=== PATIENT | female | born 1940 | race Caucasian/White ===

== ENCOUNTER → 2024-03-05 10:05 | Outpatient (REF) | payer MEDICARE, BC, SELFPAY | LOC: RAD 10:05 | PROVIDERS: ATTENDING PHYSICIAN Otolaryngology; FAMILY PHYSICIAN Internal Medicine Geriatric Medicine | DX: R13.14 Dysphagia, pharyngoesophageal phase (principal) | CPT/HCPCS: 74230; 92611 ==

== ENCOUNTER 2024-08-31 00:29 | Observation (INO) | payer MEDICARE, BC, SELFPAY ==
[2024-08-30] VITALS (7 sets, daily range): BP systolic 95–132; BP diastolic 66–88; PULSE 64–71
[2024-08-30 21:13] LABS: % Basophils 0.3 % (0-2); % Eosinophils 2.8 % (0-6); % Immature Granulocytes 0.4 % (0-0.5); % Lymphocytes 23.3 % (20.5-51.1); % Monocytes 6.8 % (1.7-9.3); % Neutrophils 66.4 % (42.2-75.2); Absolute Eosinophils 0.2 10^3/uL (0-0.7); Absolute Lymphocytes 1.6 10^3/uL (1.2-3.4); Absolute Monocytes 0.5 10^3/uL (0.1-0.6); Absolute Neutrophils 4.6 10^3/uL (1.4-6.5); Hematocrit 43.9 % (37.0-47.0); Hemoglobin 14.9 g/dL (12.0-16.0); Mean Corp Hgb Conc. 33.9 g/dL (33.0-37.0); Mean Corpuscular Hgb 33.4 pg (27.0-31.0); Mean Corpuscular Volume 98.4 fL (81.0-99.0); Mean Platelet Volume 9.8 fL (7.4-10.4); Nucleated Red Blood Cells % 0 %; Platelet Count 229 10^3/uL (130-400); Red Blood Cell Count 4.46 10^6/uL (4.20-5.40); Red Cell Dist. Width 12.3 % (11.5-14.5); White Blood Cell Count 6.9 10^3/uL (4.8-10.8)
[2024-08-30 21:27] LABS: ALT (SGPT) 26 U/L (0-35); AST (SGOT) 29 U/L (14-36); Albumin 4.2 g/dl (3.5-5.0); Alkaline Phosphatase 89 U/L (38-126); Blood Urea Nitrogen 24 mg/dl (7-17); Calcium 9.9 mg/dl (8.4-10.2); Carbon Dioxide 24 mmol/L (22-30); Chloride 104 mmol/L (98-107); Glucose 110 mg/dl (70-99); Sodium 141 mmol/L (135-145); Total Protein 7.1 g/dl (6.3-8.2); eGFR > 60.00
[2024-08-30 21:39] LABS: Troponin I < 0.012 ng/ml
[2024-08-30] MEDS: NSS 1000 IV (22:56)
--- NOTE | 2024-08-30 23:14 | ED.GENMED ---
History of Present Illness
General
Chief Complaint: Fatigue
Source: patient and family (Son at bedside)
Exam Limitations: none
Time Seen by Provider: 08/30/24 22:16
Nursing documentation reviewed up to this point in time: agreed with
History of Present Illness
History of Present Illness:
This is an 84-year-old woman who resides in independent living apartment at [facility]. She has history of permanent A-fib, chronically maintained on Xarelto, Toprol XL 50 mg, diltiazem ER 120 mg. She also has history of obstructive sleep
apnea, restless leg syndrome, hyperlipidemia, GERD, fibromyalgia, depression, glaucoma.
She complains of 3-day history of intermittent episodes of lightheadedness accompanied with some abdominal cramping nausea and near syncope. She does report history of irritable bowel syndrome and states these episodes seem to come on 1 to 2 hours
after she eats and she initially thought that these episodes were related to exacerbation of irritable bowel however admits that she has never experienced similar symptoms in the past. She denies fever, no diarrhea but perhaps mild constipation.
Last bowel movement was 2 to 3 days ago, soft but somewhat painful to pass.
Tonight while lying in bed she developed nausea, mild abdominal cramping and thought that she was going to vomit thus she sat up in an attempt to get up out of bed but then immediately passed out and fell back onto her pillow. This episode was
witnessed by her son who states his mom's eyes rolled back and she fell back unconscious. She was quite pale/douglas in color. No seizure activity. Upon EMS arrival patient did vomit once. She denies a sense of dizziness nor sense of spinning. No
palpitations, no chest pain.
Currently feeling well, currently asymptomatic.
Her daily medications include: Xarelto 20 mg daily, Toprol XL 50 mg once at bedtime, diltiazem ER 120 mg once daily, Lexapro 5 mg 2 tablets daily, Protonix 40 mg once daily, 2 eyedrops for glaucoma, multivitamin.
She has not taken her evening medications as yet which include Xarelto, Toprol, diltiazem.
Past History
Past History
ED Past Medical History: Arrthythmia (Permanent atrial fibrillation), HTN, Hypercholesterolemia and Other (Obstructive sleep apnea, restless leg syndrome, fibromyalgia, depression, glaucoma, irritable bowel syndrome)
Social History
Tobacco: Non-smoker
Alcohol: None
Personal:
Living: assisted living (Independent living apartment at [facility])
Employment: Retired
Family History
Family History: Other (Noncontributory)
Phy Exam
Physical Exam
Physical Exam:
GENERAL: 84-year-old woman appears her stated age, awake and alert, pleasant, appears in no acute distress.
EYE: pupils equal and reactive. Extraocular muscles intact, anicteric
NECK: Supple, nontender, no meningismus, no significant adenopathy.
ENT: posterior pharynx is clear, oral mucosa is minimally dry. No rhinorrhea.
CARDIAC: Irregularly irregular at a rate of 70, no murmur.
LUNGS: Clear breath sounds bilaterally, no acute respiratory distress, no wheezes/rales/rhonchi
ABDOMEN: Soft, nondistended, without focal tenderness, no r/g, no cvat. normoactive BS.
NEUROLOGICAL: Alert and oriented x3, no focal neuro deficits.
SKIN: Warm and dry, normal color, skin intact. No rash.
MUSCULOSKELETAL: No C/C/E. peripheral pulses are full and equal b/l. No palpable tenderness.
PSYCH: Normal and appropriate interaction.
Course
Orders/Labs/Results
Orders:
Orders
08/30/24 20:58
Electrocardiogram (*1) Urgent
Reason for Study: Chest Pain
EKG- Treatment ONCE
08/30/24 21:06
Complete Blood Count/With Diff Urgent
Comprehensive Metabolic Panel Urgent
Troponin I Urgent
08/30/24 22:44
Orthostatic VS- Treatment ONCE
0.9% Sodium Chloride 1000 ml [Nss] 1,000 ml IV BOLUS
Abnormal Lab Results
08/30/24
21:06
MCH 33.4 H pg
(27.0-31.0)
BUN 24 H mg/dl
(7-17)
Glucose 110 H mg/dl
(70-99)
08/30/24 21:06
08/30/24 21:06
Vital Signs
Initial and Last Documented VS:
Initial Vital Signs
Temp Pulse Resp BP Pulse Ox
97.8 F 74 16 132/88 97
08/30/24 20:55 08/30/24 20:55 08/30/24 20:55 08/30/24 20:55 08/30/24 20:55
Last Documented Vital Signs
Temp Pulse Resp BP Pulse Ox
97.8 F 65 11 95/72 100
08/30/24 20:55 08/30/24 22:45 08/30/24 22:45 08/30/24 22:25 08/30/24 22:45
MDM/Problems Addressed
Differential Diagnosis Includes:
Patient noted to be mildly hypotensive with systolic blood pressure 90-95 systolic. Concern for episodes of orthostasis, symptomatic hypotension, other consideration is intermittent bradycardia arrhythmia.
EKG shows atrial fibrillation with controlled ventricular response to slow ventricular response 58-60.
Labs are unremarkable save for very mild prerenal azotemia with BUN of 24/creatinine 0.9. Troponin is negative. CBC is unremarkable.
Will check orthostatic vital signs and initiate IV fluid hydration.
Will continue satellite project site monitor.
Abdomen is soft without appreciable tenderness, no palpable masses and with reassuring labs, no indication for imaging.
Syncopal episode tonight while in bed, no head injury and witnessed by son. No focal neurodeficits this at this point no indication for CT of the head.
Patient is however at significant risk for recurrent near syncopal/syncopal events and thus at risk for head injury, due to Xarelto she is at significant risk for intracranial injury/bleeding if syncopal event recurs.
As such requires acute hospitalization for continued close observation and continued satellite project site monitor.
Chronic conditions affecting care: Arrhythmia
*Pulse Oximetry
Patient hypoxic: no
*Wireless Development Manager Interpretation
Rate: bradycardiac
Interpretation: abnormal
Rhythm: a-fib
*Critical Care Note
Total Time (30-74mins, 75-104mins- exclusive of procedures): Not Applicable
ED Attending Note
-
Portions of this chart may have been created with voice recognition software.� Occasional wrong word or��sound alike� substitutions may have occurred due to the inherent limitations of voice recognition software.
Discharge Plan
Departure
Patient Disposition: Admit
Date of Disposition: 08/30/24
Time of Disposition: 23:32
Admit to doctor: Matt
Presentation/result/management discussed w/ accepting MD/DO: Hospitalist
Condition: Fair
Discharge Problem:
recurrent near syncope/syncope
Referrals:
Shaista Willis MD [Family Provider] -
Interventions
Interventions:
*Risk Screen - Suicide Last Done: 08/30/24 20:55
*Neglect/Abuse Screening Last Done: 08/30/24 20:55
Discharge Date and Time
Print Language: DANISH
[2024-08-31] VITALS (11 sets, daily range): BP systolic 110–143; BP diastolic 57–114; PULSE 67–92; O2SAT 96; BMI 23.5; BMI 21.9
--- NOTE | 2024-08-31 00:14 | HPS.HSE ---
Family Physician
-
Family Physician: Shaista Willis
Chief Complaint
-
Syncope, N/V
History of Present Illness
Patient is an 84y F with PMH significant for permanent atrial fibrillation and IBS who presents to ED complaining of N/V and syncopal episodes for the past 3-4 days. Patient reports long-standing IBS with alternating periods of constipation and
diarrhea. She had recent constipation with 'painful' BM several days ago. evening, she felt nauseated after dinner and felt that she had to have an episode of emesis. Patient states that she 'always passes out when I throw up'. Patient
states that she went into the bathroom and lie down on the floor where she had an episode of emesis and briefly lost consciousness. She reports several similar episodes over the past 3 days - typically occurring after eating. This evening her son
came by to check on her and witnessed a similar episode after she ate a piece of bread. He noted that her eyes rolled back and she was staring / unresponsive for several moments.
At present, she is resting comfortably. She complains of feeling tired but has no other complaints.
She denies any chest pain, palpitations, dyspnea, etc. No fevers / chills. No bloody stools. No urinary complaints.
Patient denies any recent medication changes.
Medical History
Past Medical History
Past Medical History: Reports Other
Additional Past Medical History:
Permanent Atrial Fibrillation
JADEN
Restless Leg Syndrome
Fibromyalgia
IBS
Psoriasis
Glaucoma
Past Surgical History: Reports Other
Additional Past Surgical History:
DCCV
Cardiac Cath (normal / no stent per patient)
Social History
Tobacco: Non-smoker
Alcohol: Daily (Patient drinks 3-4 glasses of alcohol daily (wine / [place]).)
Drug: None
Personal:
Family History
Family History: Not pertinent
Allergies / Home Medications
Allergies reflects when Allergies were last updated in [employer] [facility] [employer].
Home Medications with original date entered in [employer] [facility] [employer]
Allergy/Medication List:
Allergies
Allergy/AdvReac Type Severity Reaction Status Date / Time
amoxicillin Allergy Nausea / Verified 08/30/24 20:58
Vomiting
[id number] Reductase Allergy Nausea Verified 08/30/24 20:58
Inhibitor
Home Medications
diltiazem HCl 120 mg tablet,extended release 24 hr 120 mg PO DAILY 08/31/24
escitalopram oxalate 10 mg tablet 10 mg PO DAILY 08/31/24
metoprolol succinate 50 mg tablet,extended release 24 hr 50 mg PO HS 08/31/24
rivaroxaban 20 mg tablet (Xarelto) 20 mg PO DAILY 08/31/24
Review of Systems
-
History Source: Patient
A 12 point ROS was completed and negative except as noted: Yes
Constitutional: Reports Fatigue; Denies Fever or Chills
EENT: Denies Sore Throat
Respiratory: Denies Cough or Trouble Breathing
Cardiac: Reports Syncope; Denies Chest Pain or Palpitations
Abdomen/GI: Reports Nausea, Vomiting, Diarrhea and Constipated; Denies Abdominal Pain, Bloody Stools or Black Stools
: Denies Dysuria, Frequency or Flank Pain
Musculoskeletal: Denies Joint Pain or Edema
Neurological: Denies Dizzy or Headache
Psych: Denies Depression or Anxiety
Physical Exam
Vital Signs
Vital Signs
Temp Pulse Resp BP Pulse Ox
97.8 F 62 21 126/63 99
08/30/24 20:55 08/31/24 00:00 08/31/24 00:00 08/31/24 00:00 08/31/24 00:00
Physical Exam
General: Other (84y F in no acute distress.)
HEENT: Moist mucous membranes and PERRLA
Respiratory: Clear; No Wheezes, Rales or Rhonchi
Cardiac: S1/S2 and Irregular Rhythm; No Murmur
GI: Soft, Non Distended, Normal Bowel Sounds and Other (Mild tenderness in the LLQ area. No rebound / guarding.)
Musculoskeletal: No Clubbing, No Cyanosis and No Edema
Neuro: AO x 3
Laboratory Results
-
08/30/24 21:06
08/30/24 21:06
Laboratory Results
Total Bilirubin 1.0 mg/dl (0.2-1.3) 08/30/24 21:06
AST 29 U/L (14-36) 08/30/24 21:06
ALT 26 U/L (0-35) 08/30/24 21:06
Alkaline Phosphatase 89 U/L (38-126) 08/30/24 21:06
Troponin I < 0.012 ng/ml 08/30/24 21:06
Impression/Plan
-
A/P: Patient is an 84y F with PMH significant for A-Fib and IBS who presents to ED complaining of N/V x several days with recurrent syncopal episodes.
Vasovagal Syncope
- Observe overnight for further evaluation and treatment.
- Patient implies that this is a chronic / recurrent issue for her - associated with GI distress.
- Monitor on tele (currently A-Fib with relative bradycardia).
- Hold CCB for now. Continue metoprolol with split dose and holding parameters for now.
- Cardiology evaluation for additional recommendations.
- Monitor for any new / recurrent symptoms.
N/V
- Unclear etiology. Differential includes pancreatitis, alcoholic gastropathy, enteritis, etc.
- Afebrile and non-toxic. Exam relatively benign with only mild LLQ tenderness.
- Consider imaging study if symptoms worsen / persist.
- Lipase is pending.
- IVF support, antiemetics, etc.
- Follow for any new / recurrent symptoms.
Permanent Atrial Fibrillation
- Stable. Rate controlled at present / borderline bradycardic.
- Continue Xarelto for stroke risk reduction.
- Adjust chronotropic meds as noted above given syncope.
IBS
- Alternating constipation and diarrhea.
- No new / worsened symptoms per patient.
Alcohol Use Disorder
- Patient admits to 3-4 alcoholic drinks per day.
- Likely contributing to GI issues.
- Lipase pending as noted above.
- MSAS protocol / monitor for any symptoms of withdrawal.
- B12, folate, MVI replacement, etc.
DVT Prophylaxis: On Xarelto
Code Status: DNR
[2024-08-31 00:45] LABS: Lipase 165 U/L (23-300)
[2024-08-31] MEDS: LR 1000 IV ×2 (02:08→17:19)
--- NOTE | 2024-08-31 04:32 | PTCARENOTE ---
Patient arrived to floor from ED via stretcher. Patient able to safely ambulate x1 assist into room 338-1 on . Patient AAOx3 and able to make needs known. Tele placed on patient per orders. Oriented to unit. Call barry within reach. Plan of
care ongoing.
[2024-08-31 04:51] LABS: Hematocrit 40.4 % (37.0-47.0); Mean Corp Hgb Conc. 34.7 g/dL (33.0-37.0); Mean Corpuscular Hgb 35.4 pg (27.0-31.0); Mean Corpuscular Volume 102.3 fL (81.0-99.0); Mean Platelet Volume 10.3 fL (7.4-10.4); Platelet Count 184 10^3/uL (130-400); Red Blood Cell Count 3.95 10^6/uL (4.20-5.40); Red Cell Dist. Width 12.1 % (11.5-14.5); White Blood Cell Count 6.6 10^3/uL (4.8-10.8)
[2024-08-31 05:12] LABS: Blood Urea Nitrogen 22 mg/dl (7-17); Calcium 9.1 mg/dl (8.4-10.2); Carbon Dioxide 23 mmol/L (22-30); Chloride 108 mmol/L (98-107); Estimated Creatinine Clearance 58 ml/min; Glucose 101 mg/dl (70-99); Potassium 4.4 mmol/L (3.5-5.1); Sodium 139 mmol/L (135-145); eGFR > 60.00
[2024-08-31 05:40] LABS: TSH Reflex To Free T4 0.38 uIU/ml (0.47-4.68)
[2024-08-31 06:10] LABS: Free T4 0.82 ng/dl (0.78-2.19)
[2024-08-31] MEDS: PROTONIX IV 40 MG IV (08:34)
[2024-08-31] MEDS: THIAMINE INJECTION 200 MG IV ×2 (08:34→21:15)
[2024-08-31] MEDS: NSS (PRESERVATIVE FREE) 10 ML IV (08:34)
[2024-08-31] MEDS: LEXAPRO 10 MG PO (08:35)
[2024-08-31] MEDS: TOPROL XL 25 MG PO ×2 (08:35→21:14)
[2024-08-31] MEDS: FOLVITE 1 MG PO (08:36)
--- NOTE | 2024-08-31 08:42 | CON.CAR ---
Addendum entered and electronically signed by Josesito Funez MD (Ellie) 08/31/24 12:43:
I saw and examined the patient.
Dr. Hatch's note was reviewed and I agree with the note.
Comment: 84-year-old female with past medical history of permanent atrial fibrillation on Xarelto, IBS, who presents with syncope. Patient reports that for the last week she has been feeling nauseous and vomiting. 3 times when she is vomited, she
has subsequently fainted. This has never happened to her in the past. Prior to coming to the ED, she reports that she woke up in the middle of the night and felt nauseous. She got up from her bed to vomit and the next thing she knew her son had
come into the room because she had collapsed on the bed. Her son is not here to corroborate the story, so I do not know how long she was down for. She then was taken to the ED by EMS. Labs were unremarkable. Troponin negative. ECG revealed slow
atrial fibrillation with septal Q waves (unchanged from prior). She had some low blood pressures overnight (90s/70s). This morning she feels at her baseline.
I believe that her syncope is vasovagal in nature. We will have the nurse check orthostatic vitals. She will get an updated echocardiogram today. We will decrease her metoprolol to 25 mg daily given her lower blood pressures and recent fatigue.
If her echocardiogram is unchanged, she is stable for discharge. She has clinic follow-up scheduled for November.
Original Note:
Consultation
Consultation Request
Date/Time Consultation Requested: 08/31/24
Date/Time Consultation Performed: 08/31/24
Requesting Provider: Dr Sherly Funez
Performing Provider: Dr Juancarlos Hatch
Reason for Consultation: vasovagal syncope and bradycardia
Medical History
-
Chief Complaint: syncope
History of Present Illness:
84 year old female with history of permanent atria fibrillation on Xarelto presented with vasovagal syncope. Patient has been having nausea after meals for the past 3-4 days. She had an episode on of nusea and emesis after dinner. Patient
states that she always 'faints/passes out' after emesis however these symptoms are new. She has had similar recurring episodes in the past 3 days. On Saturday she could not get from the bed to use the restroom and passed out in bed when her son found
her unresponsive for a few minutes. She has long standing IBS. She was seen in [facility] clinic for low BP readings. She denies CP, SOB. She sees Dr Hopkins, outpatient.
Past Medical History
Past Medical History: Arrhythmias and Other (IBS, psoriasis, RLS, JADEN)
Past Surgical History: Cardiac (direct cardioversion)
Social History
Tobacco: Non-Smoker
Alcohol: Daily (3- 4 glasses of alcohol (wine))
Drug: None
Personal:
Employment: Retired
Family History
Family History: Reviewed & Not Pertinent
Allergies / Home Medications
Allergy/AdvReac Type Severity Reaction Status Date / Time
amoxicillin Allergy Nausea / Verified 08/30/24 20:58
Vomiting
Xoufypw-[id number] Reductase Allergy Nausea Verified 08/30/24 20:58
Inhibitor
�Medication �Instructions �Recorded �Confirmed �Type
diltiazem HCl 120 mg 120 mg PO DAILY 08/31/24 08/31/24 History
tablet,extended release 24 hr
escitalopram oxalate 10 mg tablet 10 mg PO DAILY 08/31/24 08/31/24 History
metoprolol succinate 50 mg 50 mg PO HS 08/31/24 08/31/24 History
tablet,extended release 24 hr
rivaroxaban 20 mg tablet (Xarelto) 20 mg PO DAILY 08/31/24 08/31/24 History
Review of Systems
-
All other systems: Negative unless noted
Physical Exam
Vital Signs
Temp Pulse Resp BP Pulse Ox
97.8 F 60 17 119/60 97
08/31/24 07:27 08/31/24 07:27 08/31/24 07:27 08/31/24 07:27 08/31/24 07:27
Lab Results
08/31/24 04:05
08/31/24 04:05
Troponin I < 0.012 ng/ml 08/30/24 21:06
Physical Exam
General: Comfortable
HEENT: Normocephalic and Anicteric
Respiratory: Clear
Cardiac: S1/S2 (HR 60) and Irregular Rhythm; Negative Murmur
GI: Soft, Non Tender, Non Distended and Normal Bowel Sounds
Musculoskeletal: No Edema
Neuro: AO x 3
Psych: Calm
Impression / Plan
-
Impression
Syncope
Bradycardia
Permanent Atrial fibrillation
Assessment and Plan
Syncope
D/D for syncope - cardiac vs non cardiac syncope
Cardiac - bradyarrhythmia , SVT, afib.
Non cardiac- situational/vasovagal/ orthostatic hypotension
Patient had a prodrome (nausea , vomiting ) prior to syncope which is less concerning
She is on Metoprolol succinate ER 50 mg QD for 5 years with no adjustment of doses recently. Will continue with the same dose.
check orthostatic vitals.
Normal Troponin level 0.012.
Echo in 2020 with LVEF 60- 65%, normal systolic function and size of LV
Repeat echo
Bradycardia
D/D heart block, arrhythmia, sick sinus syndrome (less likely)
HR between 58- 68 which is within normal limits
continue to monitor on telemetry
Permanent afib
Stable on Xeralto for more than 10 years with no recent dose adjustment
No h/o stroke , DVT, PE, CAD.
H/o DCCV.
[2024-08-31] MEDS: COSOPT EYE DROPS 1 DROP RIGHT EYE ×2 (10:29→21:15)
--- NOTE | 2024-08-31 15:18 | CM ---
Alert awake oriented patient who lives at [facility] . She is independent in driving and all activates of daily living.She uses no adaptive devices.Offered substance abuse counseling.She declined.Son Maya will drive her home at
dc.
No VN in past . No SNF hx
Pharmacy [facility]
PCP Dr Willis
PLAN Home no needs
[2024-08-31] MEDS: COMPAZINE 5 MG IV (15:38)
--- NOTE | 2024-08-31 15:51 | W.PN.UPDATE ---
Update Note
Progress Note Update
Reducing beta-robert.
Await echocardiogram
Suspect vasovagal etiology of syncope
Orthostatic vitals
[2024-08-31] MEDS: XARELTO 20 MG PO (17:39)
[2024-08-31] MEDS: TYLENOL 650 MG PO (17:42)
[2024-08-31] MEDS: XALATAN OPHTHALMIC SOLUTION 1 DROP RIGHT EYE (21:15)
[2024-09-01 03:27] VITALS: BP 120/71
[2024-09-01] MEDS: LR 1000 IV (03:42)
[2024-09-01 06:00] VITALS: BMI 22.4
[2024-09-01 07:20] VITALS: BP 139/83
--- NOTE | 2024-09-01 08:01 | W.PN.CD ---
Addendum entered and electronically signed by Josesito Funez MD (Ellie) 09/01/24 10:01:
I saw and examined the patient.
The resident's note was reviewed and I agree with the note.
Comment: 84-year-old female with past medical history of permanent atrial fibrillation on Xarelto, IBS, who presents with syncope. Orthostatic vital signs were negative. Blood pressure is stable this morning on half home dose metoprolol.
Echocardiogram yesterday was overall stable from prior (mild increase in the degree of TR). Her syncope is consistent with vasovagal syncope. She should continue metoprolol 25 mg daily on discharge in addition to her home diltiazem and
rivaroxaban. Cardiology will sign off. Please call with additional questions. She has follow-up scheduled for November.
Original Note:
Today's Communication / Plan
-
Patient can be discharged on 25 mg metoprolol succinate
Cardiology outpatient f/u scheduled in Nov with Dr Funez
Ok from cardiology standpoint
cardiology will sign off
Impression / Plan
-
Impression
Syncope
Bradycardia
Permanent Atrial fibrillation
Assessment and Plan
Syncope
Likely vasovagal etiology
Orthostatic hypotension unlikely due to no change in vitals with position change
Metoprolol succinate 25 mg QD .
Normal Troponin level 0.012.
Echo reveals severe RA dilation, dilated RV with reduced systolic function. LVEF 55-60%
Follow up cardiology outpatient.
cardiology to sign off
Bradycardia
D/D heart block, arrhythmia, sick sinus syndrome (less likely)
HR between 58- 68 which is within normal limits
continue to monitor on telemetry
Permanent afib
Stable on Xeralto for more than 10 years with no recent dose adjustment
No h/o stroke , DVT, PE, CAD.
H/o DCCV.
Physical Exam
Vital Signs/Labs
Vital Signs
Temp Pulse Resp BP Pulse Ox
97.5 F 74 17 139/83 97
09/01/24 07:20 09/01/24 07:20 09/01/24 07:20 09/01/24 07:20 09/01/24 07:20
08/31/24 09/01/24 09/02/24
06:59 06:59 06:59
Actual Weight 63.503 kg 64.682 kg
08/31/24 04:05
08/31/24 04:05
Free T4 0.82 ng/dl (0.78-2.19) 08/31/24 04:05
LAB Results
08/30/24
21:06
Troponin I < 0.012
Physical Exam
Constitutional: No acute distress and Comfortable
Cardiovascular: Rhythm & rate is regular
Respiratory: Lungs clear to auscul.
GI: Soft
Neuro/Psych: AO x 3
Data Reviewed
-
Date of Service: September 01, 2024
Echo: Report Reviewed by me
Labs: Labs Reviewed by me
[2024-09-01] MEDS: LEXAPRO 5 MG PO (08:31)
[2024-09-01] MEDS: THIAMINE INJECTION 200 MG IV (08:31)
[2024-09-01] MEDS: FOLVITE 1 MG PO (08:31)
[2024-09-01] MEDS: PROTONIX 40 MG PO (08:31)
[2024-09-01] MEDS: COSOPT EYE DROPS 1 DROP RIGHT EYE (08:31)
[2024-09-01 09:04] VITALS: BP 141/79; BP 143/83; BP 144/83; PULSE 66; PULSE 71; PULSE 79
[2024-09-01 09:55] LABS: Hemoglobin 13.6 g/dL (12.0-16.0); Mean Corp Hgb Conc. 34.9 g/dL (33.0-37.0); Mean Corpuscular Hgb 35.4 pg (27.0-31.0); Mean Corpuscular Volume 101.6 fL (81.0-99.0); Mean Platelet Volume 10.2 fL (7.4-10.4); Platelet Count 185 10^3/uL (130-400); Red Blood Cell Count 3.84 10^6/uL (4.20-5.40); Red Cell Dist. Width 12.2 % (11.5-14.5); White Blood Cell Count 4.5 10^3/uL (4.8-10.8)
[2024-09-01] MEDS: OMNIPAQUE 50 ML PO (10:01)
[2024-09-01 10:03] LABS: ALT (SGPT) 19 U/L (0-35); AST (SGOT) 26 U/L (14-36); Albumin 3.4 g/dl (3.5-5.0); Alkaline Phosphatase 62 U/L (38-126); Blood Urea Nitrogen 13 mg/dl (7-17); Carbon Dioxide 27 mmol/L (22-30); Chloride 106 mmol/L (98-107); Estimated Creatinine Clearance 51 ml/min; Glucose 82 mg/dl (70-99); Potassium 4.1 mmol/L (3.5-5.1); Sodium 142 mmol/L (135-145); Total Bilirubin 1.1 mg/dl (0.2-1.3); Total Protein 5.9 g/dl (6.3-8.2); eGFR > 60.00
[2024-09-01 10:11] LABS: Lipase 135 U/L (23-300)
[2024-09-01 11:13] VITALS: BP 118/68
--- NOTE | 2024-09-01 12:32 | W.PN.HOSP.TC ---
Addendum entered and electronically signed by Magdi Eaton MD 09/02/24 17:57:
[id number]
Original Note:
Today's Communication/Plan
-
Reduce Toprol
CT abdomen pelvis
Follow-up PCP, GI, cardiology outpatient
Follow lipid panel, can consider aspirin, statin outpatient
Assessment / Plan
Assessment / Plan
Physical Exam
Constitutional: No acute distress and Comfortable
Cardiovascular: Rhythm & rate is regular
Respiratory: Lungs clear to auscul.
GI: Soft
Neuro/Psych: AO x 3
#Syncope
# Nephrolithiasis echo etiology in setting of vomiting
� Reduced Toprol to 20 mg daily
� No chest pain
� Echo revealing severe RA dilation, dilated RV with EF of 55 to 60%
� Continue back on diltiazem and Xarelto
� Follow cardiology outpatient
� Orthostatics negative
#Permanent atrial fibrillation
� On Xarelto
� AV marika blockade as discussed, reduce Toprol, continue diltiazem
� Has history of DCCV
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
� Already on Eliquis
-Lipid panel outpatient to start statin
-F/u with PCP for starting on ASA while already on Eliquis - Patient does drink EtOH daily - and may want to avoid Eliquis along with ASA
#Vomiting
-suspect alcoholic gastropathy
� Started on PPI
� CT abdomen pelvis
� Lipase within normal limits
� Follow-up gastroenterology outpatient for possible endoscopy
#IBS
Follow-up ER patient
#Alcohol use disorder
� Follow-up outpatient
� Drinks 3-4 alcoholic drinks per day
DVT prophylaxis
� Xarelto
DNR
More than 30 minutes spent in discharge including
Final examination of the patient
Summarizing hospital stay
Instructions for continuing care to all relevant caregivers
Preparation of discharge records, prescriptions, and referral forms
Total time spent (35 in minutes):
Anticipated Discharge: Today
Subjective/Interval History
-
Date of Service: September 01, 2024
no more vomiting, mild nausea - has improved
Objective Data
-
Labs:
Laboratory Results
09/01/24
09:12
WBC 4.5 L
Hgb 13.6
Hct 39.0
Plt Count 185
Sodium 142
Potassium 4.1
Chloride 106
Carbon Dioxide 27
BUN 13
Creatinine 0.8
Glucose 82
Calcium 9.0
Total Bilirubin 1.1
AST 26
ALT 19
Alkaline Phosphatase 62
Vital Signs:
Vital Signs
Temp Pulse Resp BP Pulse Ox
97.5 F 72 17 118/68 96
09/01/24 11:13 09/01/24 11:13 09/01/24 11:13 09/01/24 11:13 09/01/24 11:13
I&O
08/31/24 09/01/24 09/02/24
06:59 06:59 06:59
Intake Total 240 / 240 3180 / 3180
Balance 240 / 240 3180 / 3180
Review of Systems
-
History Source: Patient
All other systems: Not reviewed unless documented
Data Reviewed
-
CT Scan: Image personally visualized and interpreted and Report Reviewed by me
Labs: Labs Reviewed by me
--- NOTE | 2024-09-01 12:57 | W.DS.TRANS ---
DC Summary - Title Curator
-
Discharge Instructions:
Discharge Diagnosis/Procedures Vasovagal syncope
Nausea
Diet Low Cholesterol,Low Fat
Additional Diets Avoid alcohol use
Activity As tolerated
Driving Restrictions Not until seen by your Dr
Instructions:
Stand-Alone Forms:
Changes to Home Medications: Yes
Discharge Medications:
DC Medications w/original date entered in [facility]
diltiazem HCl 120 mg tablet,extended release 24 hr 120 mg PO DAILY Atrial fibrillation 08/31/24
dorzolamide 22.3 mg-timolol 6.8 mg/mL eye drops 1 drp RIGHT EYE BID@0800,2200 glaucoma 08/31/24
escitalopram oxalate 5 mg tablet 5 mg PO DAILY Depression 08/31/24
latanoprost 0.005 % eye drops 1 drp RIGHT EYE HS glaucoma 08/31/24
rivaroxaban 20 mg tablet (Xarelto) 20 mg PO QPM Blood Clot Prevention/Tx 08/31/24
metoprolol succinate 25 mg tablet,extended release 24 hr 25 mg PO HS 30 days #30 tabs 09/01/24
pantoprazole 40 mg tablet,delayed release 40 mg PO DAILY 30 days #30 tabs 09/01/24
Home Medication Changes
metoprolol succinate 25 mg tablet,extended release 24 hr 25 mg PO HS 30 days #30 tabs 09/01/24
pantoprazole 40 mg tablet,delayed release 40 mg PO DAILY 30 days #30 tabs 09/01/24
Pending Results: No
[2024-09-01 13:41] LABS: LDL Cholesterol, Direct 171 mg/dl
--- NOTE | 2024-09-01 14:06 | CM ---
MD entered order for discharge
Pt said her son Teto will drive her home.
Bone Biopsy done.
Offered Vn she declined need.
PLAn Home no needs
== END 2024-09-01 14:52 | disposition home or self-care (01) ==
LOC: 3 WEST ACU 00:29
PROVIDERS: Emergency Medicine; ADMITTING PHYSICIAN Hospitalist; ATTENDING PHYSICIAN Internal Medicine; EMERGENCY PHYSICIAN Emergency Medicine; FAMILY PHYSICIAN Internal Medicine Geriatric Medicine; OTHER PHYSICIAN Student in an Organized Health Care Education/Training Program
DX: R55 Syncope and collapse (principal); R11.2 Nausea with vomiting, unspecified; R53.83 Other fatigue; F10.10 Alcohol abuse, uncomplicated; R19.7 Diarrhea, unspecified; I48.21 Permanent atrial fibrillation; G47.33 Obstructive sleep apnea (adult) (pediatric); H40.9 Unspecified glaucoma; F32.A Depression, unspecified; M79.7 Fibromyalgia; K21.9 Gastro-esophageal reflux disease without esophagitis; R00.1 Bradycardia, unspecified; G25.81 Restless legs syndrome; E78.5 Hyperlipidemia, unspecified; R10.814 Left lower quadrant abdominal tenderness; I45.9 Conduction disorder, unspecified; I67.82 Cerebral ischemia; K76.0 Fatty (change of) liver, not elsewhere classified; J21.9 Acute bronchiolitis, unspecified; G31.9 Degenerative disease of nervous system, unspecified; K58.9 Irritable bowel syndrome, unspecified; E78.00 Pure hypercholesterolemia, unspecified; I11.9 Hypertensive heart disease without heart failure; Z88.8 Allergy status to other drugs, medicaments and biological substances; Z60.2 Problems related to living alone; Z88.0 Allergy status to penicillin; Z79.01 Long term (current) use of anticoagulants; Z66 Do not resuscitate; Z86.73 Personal history of transient ischemic attack (TIA), and cerebral infarction without residual deficits
CPT/HCPCS: 70450; 74177; 80048; 80053; 83690; 83721; 84439; 84443; 84484; 85025; 85027; 87070; 93005; 93306; 96360; 97116; 97163; 97166; 99285; G0378; Q9967

== ENCOUNTER → 2024-10-23 09:58 | Outpatient (REF) | payer MEDICARE, BC, SELFPAY ==
[2024-10-23 12:39] LABS: Iron 122 ug/dl (37-170)
[2024-10-23 12:52] LABS: Percent Saturation 35 % (20-50); Total Iron Binding Capacity 342 ug/dl (265-497)
[2024-10-23 13:25] LABS: Hepatitis B Surface Antigen Negative (Negative)
[2024-10-23 13:32] LABS: Hepatitis A Antibody, Total Positive (Negative); Hepatitis B Core Ab, Total Negative (Negative); Hepatitis B Surface Antibody Negative; Hepatitis C Antibody Negative (Negative)
[2024-10-24 23:59] LABS: Alpha-1-Antitrypsin 129 mg/dL (90-200)
[2024-10-25 00:24] LABS: LKM-1 Ab (IgG) 0.8 U (0.0-24.9)
[2024-10-25 01:44] LABS: F-Actin Antibody IgG 4 Units (0-19); Mitochondrial M2 Ab, IgG 12.3 Units (0.0-24.9)
[2024-10-25 09:57] LABS: ANA, IgG Reflex to HEp-2 None Detected (None Detected)
[2024-10-26 01:03] LABS: IgA 342 mg/dl (70-400); IgG 911 mg/dl (700-1600); IgM 171 mg/dl (40-230)
== END ==
LOC: RAD 09:58
PROVIDERS: ATTENDING PHYSICIAN Internal Medicine Gastroenterology; FAMILY PHYSICIAN Internal Medicine Geriatric Medicine
DX: R13.10 Dysphagia, unspecified (principal); R19.7 Diarrhea, unspecified; K76.0 Fatty (change of) liver, not elsewhere classified
CPT/HCPCS: 36415; 74221; 82103; 82784; 83516; 83540; 83550; 84443; 86015; 86038; 86376; 86381; 86704; 86706; 86708; 86803; 87340

== ENCOUNTER → 2024-11-17 11:49 | Outpatient (REF) | payer MEDICARE, BC, SELFPAY | LOC: REG 11:49 | PROVIDERS: ATTENDING PHYSICIAN Internal Medicine Gastroenterology; FAMILY PHYSICIAN Internal Medicine Geriatric Medicine | DX: R19.7 Diarrhea, unspecified (principal) | CPT/HCPCS: 83993 ==

== ENCOUNTER 2024-12-24 06:21 | Day surgery (SDC) | payer MEDICARE, BC, SELFPAY | END 2024-12-24 15:04 | disposition home or self-care (01) | LOC: GI 06:21 | PROVIDERS: ATTENDING PHYSICIAN Internal Medicine Gastroenterology | DX: R10.13 Epigastric pain (principal); R13.10 Dysphagia, unspecified; K44.9 Diaphragmatic hernia without obstruction or gangrene; K22.2 Esophageal obstruction; K31.7 Polyp of stomach and duodenum; K31.89 Other diseases of stomach and duodenum | CPT/HCPCS: 43239; 88305; 88342 ==

== ENCOUNTER → 2025-11-09 12:50 | Outpatient (REF) | payer MEDICARE, BC, SELFPAY ==
[2025-11-09 15:58] LABS: Hematocrit 42.4 % (37.0-47.0); Hemoglobin 14.1 g/dL (12.0-16.0); Mean Corp Hgb Conc. 33.3 g/dL (33.0-37.0); Mean Corpuscular Volume 100.7 fL (81.0-99.0); Nucleated Red Blood Cells % 0 %; Platelet Count 215 10^3/uL (130-400); Red Cell Dist. Width 14.0 % (11.5-14.5)
[2025-11-09 16:13] LABS: Blood Urea Nitrogen 17 mg/dl (7-17); Calcium 9.2 mg/dl (8.4-10.2); Carbon Dioxide 28 mmol/L (22-30); Chloride 105 mmol/L (98-107); Glucose 84 mg/dl (70-99); Potassium 4.7 mmol/L (3.5-5.1); Sodium 137 mmol/L (135-145); eGFR > 60.00
== END ==
LOC: HWRCS 12:50
PROVIDERS: ATTENDING PHYSICIAN Nurse Practitioner; FAMILY PHYSICIAN Student in an Organized Health Care Education/Training Program
DX: R42 Dizziness and giddiness (principal); R04.0 Epistaxis
CPT/HCPCS: 36415; 80048; 85025; 93306